=== PATIENT | female | born 1940 | race Caucasian/White ===

== ENCOUNTER 2018-06-22 06:00 | Day surgery (SDC) | payer OTHER ==
[~2018-06-22 06:00] MED LIST: ANASTROZOLE1 MG PO; COZAAR50 MG PO; NEURONTIN600 MG PO; OXYC1TAB9 PO; RESTORA CAPSUL1 EACH PO; SYNTHROID100 MCG; ZOLOFT100 MG PO
== END 2018-06-22 09:45 | disposition home or self-care (01) ==
LOC: AMB-ENDOS 06:00
DX: D12.2 Benign neoplasm of ascending colon (principal); D12.4 Benign neoplasm of descending colon